=== PATIENT | male | born 1960 | race Caucasian/White ===

== ENCOUNTER → 2020-11-21 | Outpatient (CLI) | payer BC, OTHER ==
[2020-11-21 13:44] LABS: BUN/CREATININE RATIO 11 (0-10)
== END ==
LOC: CT 13:04
PROVIDERS: Advanced Practice Midwife
DX: R10.9 Unspecified abdominal pain (principal); K62.89 Other specified diseases of anus and rectum; K57.90 Diverticulosis of intestine, part unspecified, without perforation or abscess without bleeding; K76.0 Fatty (change of) liver, not elsewhere classified; Z87.19 Personal history of other diseases of the digestive system
CPT/HCPCS: 36415; 80053; Q9967